=== PATIENT | male | born 1960 | race Caucasian/White ===

== ENCOUNTER 2016-09-02 16:01 | Observation (INO) | payer OTHER ==
[2016-09-02] VITALS (9 sets, daily range): BP systolic 105–154; BP diastolic 75–113; PULSE 58–121; RESP 16–21; O2SAT 92–99
[~2016-09-02] VITALS: Ht 185.4 cm; Wt 104.3 kg
[2016-09-02] MEDS ORDERED: fentaNYL-PF 50 mCg/mL 2 mL Inj ONE (16:19)
--- NOTE | 2016-09-02 16:55 | NUR ---
Admit Patient arrived on the floor from urgent care in stable condition. A&Ox3. Appy surgery scheduled for 2100 today. Patient reports 8/10 abdominal pain when moving and no pain when resting. Denies nausea. Admit completed. Patient orientated to call light, bed, and phone. Patient has 2 hearing aids. at bedside. Call light and tray table within reach. Will continue to monitor patient hourly.
--- NOTE | 2016-09-02 17:09 | PCM.HPANE ---
Patient Data Surgeon Admitting Provider:Salinas Garrett MD Attending Provider:Salinas Garrett MD Primary Care Physician:Arcadio Tiwari MD Other Provider: Reason for Visit Appendicitis Ht/WT & BMI Body Mass Index Allergies Coded Allergies: No Known Allergies (Unverified , 09/02/16) Medications Reported Medications Meloxicam 15 Mg [id number] Mg ORAL DIRECTED #30 09/02/16 Trazodone 50 Mg Twrria55 Mg PO DIRECTED PRN For Sleep #30 09/02/16 Stop/Bang S-Snoring: Do You Snore Loudly: Yes T-Tired: feel tired, fatigued: Yes O-Obsered: Observed not breath: No P-Blood Pressure: treated: No B- Body Mass Index > 35 kg/m2: No A- Age over 50: Yes N- Neck Large Circumference: Yes G- Gender Male: Yes CELSO Risk Assessment: High Risk, =/>3 Yes CELSO Category 2: Yes Risk Assessment Category Category 1A: Patient has history of documented sleep apnea, and HAS NOT received any narcotic, sedative or anesthesia administration during this stay. Category 1B: Patient has history of documented sleep apnea, and HAS received any narcotic , sedative or anesthesia administration during this stay Category 2: Patient has SUSPECTED Obstructive Sleep Apnea, and HAS received any narcotic , sedative or anesthesia administration during this stay. Category 3: Patient has SUSPECTED Obstructive Sleep Apnea and HAS NOT received narcotic, sedative or anesthesia administration during this stay. Category 4: Outpatient in Procedural Areas with known sleep apnea or who screen positive for High Risk via the STOP/BANG questionnaire. Exam Exam General Appearance: Alert, Oriented X3, Cooperative, No Acute Distress HEENT/AIRWAY: MP 2 Lungs: Clear to Auscultation, Normal Air Movement Heart: Exam Unremarkable, Regular Rate/Rhythm, No Murmurs/Rubs/Gallops Plan Impression Patient chart reviewed, patient interviewed and anesthestic plan with risks, benefits, and alternatives discussed, and informed consent obtained. ASA Physical Status: ASA2 Mod Systemic Disease Anesthetic Plan: GA Bene/Risks/Altern/Consents: Yes HP Complete Prior to Induction: Yes Ney Paul MD Sep 02, 2016 17:09
[2016-09-02] MEDS ORDERED: Propofol 10,000 mCg/mL 20 mL Inj ONE (17:31)
[2016-09-02] MEDS ORDERED: Succinylcholine Chloride 20 mg/mL 5 mL Inj ONE (17:31)
[2016-09-02] MEDS ORDERED: Rocuronium 10 mg/mL 5 mL Inj ONE (17:31)
[2016-09-02] MEDS ORDERED: Dexamethasone 4 mg/mL Inj ONE (17:31)
[2016-09-02] MEDS ORDERED: Glycopyrrolate 0.2 mg/mL 5 mL Inj ONE (17:31)
[2016-09-02] MEDS ORDERED: Ondansetron 2 mg/mL 2 mL Inj ONE (17:31)
[2016-09-02] MEDS ORDERED: Neostigmine 1 mg/mL 5 mL Inj ONE (17:31)
[2016-09-02] MEDS ORDERED: TRAZ-115 PO (18:27)
[2016-09-02] MEDS ORDERED: MELO-253 ORAL (18:27)
[2016-09-02] MEDS ORDERED: CeFAZolin Inj 2 GM in IV Premix 1 EACH IV ONE (20:10)
[2016-09-02] MEDS ORDERED: metroNIDAZOLE Inj 500 MG in IV Premix 1 EACH IV ONE (20:10)
--- NOTE | 2016-09-02 21:25 | NUR ---
Surgery Patient left for OR at 2119. Consent signed. ABX sent with OR nurse. Patient A&Ox3.
[2016-09-02] MEDS ORDERED: Bupivacaine-MPF 0.5% W/EPI 30 mL Inj INFILTRATE ONE (22:13)
[2016-09-02] MEDS ORDERED: Lactated Ringer's 500 ML IV PRN (22:18)
[2016-09-02] MEDS ORDERED: Lactated Ringer's 1,000 ML IV SCH (22:18)
[2016-09-02] MEDS ORDERED: Ondansetron 2 mg/mL 2 mL Inj IVPUSH PRN ×2 (22:20→23:20)
[2016-09-02] MEDS ORDERED: EPHEDrine Sulfate 50 mg/mL Inj IVPUSH PRN (22:20)
[2016-09-02] MEDS ORDERED: Dexamethasone 4 mg/mL Inj IVPUSH PRN (22:20)
[2016-09-02] MEDS ORDERED: MetoCLOpramide 5 mg/mL 2 mL Inj IVPUSH PRN (22:20)
[2016-09-02] MEDS ORDERED: Phenylephrine 10,000 mCg/mL Inj IVPUSH PRN (22:20)
[2016-09-02] MEDS ORDERED: Dextrose 5% Lactated Ringer's 1,000 ML IV SCH (23:18)
[2016-09-02] MEDS ORDERED: HYDROcodone-APAP 5-325 mg Tablet PO PRN (23:20)
[2016-09-02] MEDS: fentaNYL-PF 50 mCg/mL 2 mL Inj IVPUSH PRN ×3 (23:30→23:44)
[2016-09-02] MEDS: HYDROmorphone 1 mg/mL Inj IVPUSH PRN ×4 (23:34→23:55)
[2016-09-03] VITALS (10 sets, daily range): BP systolic 114–141; BP diastolic 68–98; PULSE 53–76; RESP 18–20; O2SAT 95–100
[2016-09-03] MEDS: fentaNYL-PF 50 mCg/mL 2 mL Inj IVPUSH PRN ×2 (00:15)
--- NOTE | 2016-09-03 00:16 | PCM.ANEP1 ---
Post Anesthesia Phase 1 PACU Phase 1 Assessment Vital Signs Vital Signs Date Time Temp Pulse Resp B/P Pulse Ox O2 Delivery O2 Flow Rate FiO2 09/03/16 00:10 67 19 125/98 99 Nasal Cannula 3 09/03/16 00:05 61 20 127/76 98 Nasal Cannula 3 09/03/16 00:00 68 20 115/68 98 Nasal Cannula 3 09/02/16 23:55 68 19 134/80 99 Nasal Cannula 3 09/02/16 23:50 71 19 107/89 99 Nasal Cannula 3 09/02/16 23:45 71 17 128/79 99 Nasal Cannula 3 09/02/16 23:40 71 17 105/86 99 Simple Mask 8 09/02/16 23:35 70 17 154/106 99 Simple Mask 8 09/02/16 23:30 36.5 74 17 135/113 99 Simple Mask 8 09/02/16 20:27 37.0 58 18 132/79 96 Room Air 09/02/16 17:49 36.8 61 16 125/82 97 Room Air Anesthetic Administered: GA Level of Alertness: Awake, talking DE JESUS's with Equal Strength: Yes Pain: No Nausea or Vomiting: No Oxygen Delivery: Simple Mask Lungs: Clear to Auscultation, Normal Air Movement Ney Paul MD Sep 03, 2016 00:16
--- NOTE | 2016-09-03 00:48 | HP ---
[address] [address] HISTORY AND PHYSICAL PATIENT: JACQUE GRACE : 1960 MR#: [id number] ADMIT: 09/02/2016 JOB ID: [id number] CORRECTED REPORT: CHIEF COMPLAINT: Appendicitis. HISTORY OF PRESENT ILLNESS: The patient is a 56-year-old male who presented to the Urgent Care today due to abdominal pain. The patient states that the pain started yesterday in the late morning or early afternoon. It initially felt like gas and he felt his abdomen was going to blow up. This was associated with some nausea and some fevers and chills. Later in the day, he started to have more pain in the right lower quadrant. It continued to get worse overnight and eventually this prompted him to visit the Urgent Care today. The pain in the right lower quadrant is now described as sharp, jabbing type of pain. He had a bowel movement today that was described as diarrhea. Workup in the Urgent Care included a CT scan that was consistent with acute appendicitis. PAST MEDICAL HISTORY: Left knee surgery x2. Right shoulder surgery and sinus surgery. MEDICATION: Trazodone and Meloxicam. ALLERGIES: None. SOCIAL HISTORY: The patient is , with two sons. He lives in [place]. He works for a construction company. He does not smoke. FAMILY HISTORY: Positive for appendicitis in his father. REVIEW OF SYSTEMS: Positive for the right lower quadrant abdominal pain, fevers and chills, and the diarrhea today. All other systems reviewed were negative. PHYSICAL EXAMINATION: The patient is currently in the hospital bed, in no acute distress. Temperature is 36.8, blood pressure 125/82, pulse is 61, respirations 16. His BMI is 30.3. Head is normocephalic, atraumatic. There is no scleral icterus. Neck is supple. Heart is regular in rate. Lungs are clear bilaterally. Abdomen is nondistended. It is soft. There is focal tenderness in the right lower quadrant. There is no rebound. There is no mass effect. Extremities show no clubbing and no cyanosis. Neurologically, the patient is awake and alert, and answers appropriately. LABORATORY DATA: I do not have his lab results from Urgent Care at this time. The CT scan report from today shows acute appendicitis. ASSESSMENT: This is a 56-year-old male with acute appendicitis. The patient will be started on IV antibiotics, and he will be taken to the operating room today for laparoscopic appendectomy, possible open. The risks of the operation were discussed with the patient and his , and they understand and wish to proceed. Corrected by GS 09/23/16 at 8:04am Corrected account.
--- NOTE | 2016-09-03 00:51 | PCM.ANEP2 ---
Post Anesthesia Evaluation ASA/CMS Post Anesthesia VS in Patient's Normal Range?: Yes Resp Stable; Airway Patent?: Yes CV Function & Hydration Stable: Yes Mental Status Recovered?: Yes Pain control Satisfactory?: Yes N/V Control Satisfactory?: Yes Ney Paul MD Sep 03, 2016 00:50
--- NOTE | 2016-09-03 02:33 | OP ---
[address] [address] OPERATIVE REPORT PATIENT: JACQUE GRACE : 1960 MR#: [id number] ADMIT: 09/02/2016 JOB ID: [id number] DATE OF SURGERY: SURGEON: Salinas Garrett MD. DEPARTMENT OF MATHEMATICS CHAIR: Cammy Varela PA-C. ANESTHESIA: General. PREOPERATIVE DIAGNOSIS(ES): Acute appendicitis. POSTOPERATIVE DIAGNOSIS(ES): Acute appendicitis. PRINCIPAL PROCEDURE: Laparoscopic appendectomy, modifier 22. INDICATION FOR PROCEDURE: The patient is a 56-year-old male with abdominal pain and a CT scan finding that was suspicious for acute appendicitis. OPERATIVE FINDING: Principal finding is a retrocecal appendix that was stuck to the retroperitoneum. It was long and thin, not sure if it represents acute appendicitis. It took extra time and effort and an extra port to find the appendix and to dissect it out. Assistance from a surgical PA was critical in completion of the case. PROCEDURE COURSE: The patient was brought to the operating table and was provided with general anesthesia. Patient was given IV antibiotics and SCDs. A time-out was performed. The patient's abdomen was then prepped and draped in the usual sterile fashion. Next, local anesthetic was injected into the left upper quadrant location and a 5 mm stab incision was made. A Veress needle was used to establish pneumoperitoneum. Next, a 5 mm trocar was then placed and the laparoscope was then introduced. A second 5 mm trocar was then placed in the left lateral abdomen and a 12 mm trocar was then placed in the left lower quadrant. Quite a bit of time was spent exploring in the right lower quadrant and looking at the cecum to try to find the appendix. It turns out that the appendix was stuck to the retroperitoneum in a retrocecal fashion. The overlying peritoneum was then detached from the appendix and we were able to identify a very long and thin appendix that I am not sure represents acute inflammation. Once we reached the base of the appendix, a single firing of the endoscopic SOREN stapler was used to transect through the base of the appendix. The specimen was then placed into the EndoCatch bag and removed from the patient. The right lower quadrant was then irrigated and suctioned. Hemostasis was adequate. Irrigation of the pelvis was also performed and there is no fluid by the liver. There did not appear to be any other signs of pathology. A fourth trocar was used during the operation on the right side of the patient to help with retraction of the cecum. The assistance from a surgical PA was definitely critical in completion of the case. Next, we turned our attention to the left lower quadrant trocar site. The fascial defect there was then reapproximated using 0 Vicryl suture using the Endo Close device. Next, CO2 was allowed to escape and all the trocars were then removed from the patient. Skin edges were reapproximated using absorbable sutures. Steri-Strips and sterile dressing were then placed over each wound. By the end of procedure, needle counts and sponge counts were correct. The patient was then extubated and taken to the recovery room in stable satisfactory condition. SHELLEY
--- NOTE | 2016-09-03 03:01 | NUR ---
Post Op Patient arrived back to floor at 0025. Patient was A&Ox3. Patient stated that he was in a lot of pain. Patient's vitals stable. 3L O2 99%.
[2016-09-03] MEDS: HYDROmorphone 1 mg/mL Inj IVPUSH PRN ×2 (05:40→10:05)
[2016-09-03] MEDS: CeFAZolin Inj 2 GM in IV Premix 1 EACH IV SCH ×2 (05:56→14:32)
[2016-09-03 06:26] LABS: Mean Corpuscular Hemoglobin 30.4 pg (27.0-35.0)
[2016-09-03] MEDS: metroNIDAZOLE Inj 500 MG in IV Premix 1 EACH IV SCH ×2 (06:31→15:28)
[2016-09-03] MEDS ORDERED: OXYC5TAB72 PO (09:30)
[2016-09-03] MEDS ORDERED: POLY17PO6 PO (09:30)
--- NOTE | 2016-09-03 09:31 | PCM.DISURG ---
Surgical Discharge Instruction Date of Service Sep 03, 2016 Dates of Hospitalization Date of Hospital Admission Sep 02, 2016 at 17:30 Providers Admitting Physician: Salinas Garrett MD Primary Care Physician: Arcadio Tiwari MD Attending Physician: Salinas Garrett MD Discharge Diagnosis Discharge Diagnosis Primary diagnosis: Acute appendicitis Post Operative diagnosis Acute appendicitis Diet Discharge Diet: No restrictions Activity Discharge Activity-General: Balance rest and activity, No driving while taking narcotic Dressing and Incisional Care Dressing Care: Allow Steri Stripes to fall off Hygiene: May shower Follow Up Plan Follow Up Plan General surgery clinic 1 week to 10 days Follow-up Provider (F9): Salinas Garrett MD Follow-up appointment: Weeks (2) Call your provider for: Fever, Chills, Increasing abdominal pain, Discharge @ incision, pus discharge Cammy Varela PA-C Sep 03, 2016 09:31
--- NOTE | 2016-09-03 09:43 | PCM.DC.SUR ---
Discharge Summary Date of Service: Sep 03, 2016 Date of Hospital Admission: Sep 02, 2016 at 17:30 Date of Operation(s): 09/02/2016 Date of Discharge: 09/03/2016 Diagnosis at Time of Discharge Acute appendicitis Problems: Operation Laparoscopic appendectomy Brief History and Physical: The patient is a 56-year-old male with abdominal pain and a CT scan finding that was suspicious for acute appendicitis. Consultants: General surgery: Dr. Jonatahn Garrett Hospital Course: After undergoing the above procedure the patient was extubated in the operating room and taken to the recovery room. While in the recovery room pain was controlled with first Versed 0.5 mg and fentanyl 50 mcg for anxiety. Patient arrived back to floor at 0025. Patient was A&Ox3. Patient stated that he was in a lot of pain. Patient's vitals stable. 3L O2 99%. Pain was controlled with oral [place] and IV Dilaudid. The morning of postop day 1 the patient was sitting up in bed, ate a light breakfast, ambulated to the bathroom, states pain is controlled with oral narcotics, denies nausea or vomiting, and feels comfortable with discharge this afternoon. The IV is hep-locked, pain medication changed to oral oxycodone. Discharge paperwork prepared. Pathology: Pending Disposition: Patient will be discharged to home. Vital signs stable, afebrile, voiding, ambulating, pain control with oral analgesics, tolerating food by mouth Vital signs on discharge: Temperature 36.6, pulse 73, respirations 18, blood pressure 124/83, oxygen saturations 2 L 96%. Follow-up Plan: Dr. Jonathan Garrett 1-2 weeks Meloxicam (Meloxicam) 15 Mg Tablet 15 MG ORAL DIRECTED (Reported) Polyethylene Glycol 3350 (Miralax) 17 Gm Powd.pack 17 GM PO BID Trazodone (Trazodone) 50 Mg Tablet 50 MG PO DIRECTED PRN PRN For Sleep ( Reported) oxyCODONE (oxyCODONE) 5 Mg Tablet 5-10 MG PO Q4H PRN PRN For Moderate Pain copies to: Arcadio Tiwari MD, Sherri L PA-C Sep 03, 2016 09:43
--- NOTE | 2016-09-03 11:31 | NUR ---
Social Work Discharge and Brief Note: Order for discharge acknowledged. Patient is a 56 year old male admitted under observation status on 09/02/16 for appendicitis. Patient payor as [facility]. Patient resides in [facility]. Patient resides with and is independent at baseline. Patient underwent surgery for laparoscopic appendectomy. No anticipated discharge needs identified at this time. SW to follow. PLAN; Home with , via POV pending clinical course Darlene LEGGETT
--- NOTE | 2016-09-03 15:53 | NUR ---
Medication Pain medication given at 1428 and not scanned prior to tearing packaging. 6 rights of medication verified with nurse charge rn prior to dispensing and medication received from pt's profile in [employer].
--- NOTE | 2016-09-03 16:28 | NUR ---
Discharge Pt discharged at 1420 in w/c to private vehicle with . Pt has all rx's, care notes and discharge instructions. All questions answered and pt advised on s/s of when to come back or call 911. Pt abd pain well controlled with medication, A&O x 3, VSS, DE JESUS. Pt has all belongings.
--- NOTE | 2016-09-04 14:21 | PATH ---
SURGICAL PATHOLOGY Attending Physician:Salinas Garrett M.D. CASE STATUS: Signed Out PATIENT NAME: JACQUE GRACE PID: [id number] : 1960 DATE COLLECTED:09/02/2016 00:00 SPECIMEN: Appendix CLINICAL HISTORY: A: APPENDIX FINAL DIAGNOSIS: 1.APPENDIX: CHANGES CONSISTENT WITH FOCAL EARLY ACUTE APPENDICITIS. ICD10 CODE K35.80 GROSS DESCRIPTION: The specimen is received in one formalin filled container labeled with the patient's name, sublabeled "appendix" and consists of one cylindrical bergeron appendix measuring 10.0 x 0.7 x 0.6 CM. The serosal surface is a light moulton and glistening. There is a small amount of attached fatty tissue. Sectioning reveals the wall to be thickened to approximately 0.2 CM. There is a small amount of light bergeron-brown friable material in the lumen. Health Officer sections are submitted in one cassette. 09/03/2016 DAC MICRO DESCRIPTION: Sections are from the appendix. There are focal areas in which there is superficial acute inflammation and PMNs present within the superficial mucosa consistent with very early acute appendicitis. Transmural inflammation is not noted. There is no evidence for neoplasm. ICD-9 CODES: CPT CODES: 1: 45773 Electronically Signed Out Narendra Ma MD [facility] Pathology [facility] [address], [place] [address] Technical component performed at [facility], [facility] [address], [place], [address]
== END 2016-09-03 16:20 | disposition home or self-care (01) ==
LOC: OSC 17:30
PROVIDERS: ADMIT Surgery; ATTEND Surgery
DX: K35.80 Unspecified acute appendicitis (principal)
CPT/HCPCS: 36415; 44970; 85027; 94640; 96365; 96367; 96375; G0378; G0379; J0330; J0690; J1100; J1170; J2250; J2405; J2710; J3490; J7120